=== PATIENT | female | born 1950 | race Caucasian/White ===

== ENCOUNTER 2022-05-11 13:37 | Inpatient (IN) | payer OTHER ==
[2022-05-11] MEDS ORDERED: NA CHLORIDE 0.9% 1,000 ML ONE (14:28)
--- NOTE | 2022-05-11 14:36 | RAD REPORT ---
EXAM DESCRIPTION: RAD - Chest Single View - 05/11/2022 2:17 pm CLINICAL HISTORY: syncope Chest pain. COMPARISON: CHEST PA AND LAT 2 VIEW dated 01/25/2012 FINDINGS: Portable technique limits examination quality. The lungs are mildly emphysematous but grossly clear. The heart is normal in size. No displaced fract ures. IMPRESSION: No acute intrathoracic process suspected.
[2022-05-11 14:39] LABS: Absolute Lymphocytes (CBC) 0.9 K/uL (0.7-4.9); Hematocrit 45.7 % (36.0-45.0); Lymphocytes % 9.5 % (15.3-44.8); MCV 91.2 fL (80-100); MPV 8.3 fL (7.6-11.3); RBC Red Blood Cell Count 5.01 M/uL (3.86-4.86)
[2022-05-11 14:42] LABS: Protime INR 1.09
[2022-05-11 14:52] LABS: Albumin 3.5 g/dL (3.4-5.0); Bilirubin Total 0.7 mg/dL (0.2-1.0); Potassium 4.2 mmol/L (3.5-5.1); Protein, Total 7.7 g/dL (6.4-8.2)
--- NOTE | 2022-05-11 15:39 | ER ---
Nurse's Notes [facility] Name: Jamia Hernandez Age: 71 yrs Sex: Female : 1950 Arrival Date: 05/11/2022 Time: 13:41 Bed 6 Private MD: Diagnosis: Acute embolism and thrombosis of other specified deep vein of left lower extremity;Syncope;Pulmonary embolism without acute cor pulmonale Presentation: 05/11 13:47 Chief complaint: EMS states: Toned out by spouse for syncopal episode upon standing, jl7 reports pt has been fighting a UTI and with hx of Alzheimer's. EMS reports pt systolic BP on arrival was 80, 350 mL of NS given in route and BP 116/86 just CLAM TREADER at ED. Coronavirus screen: At this time, the client does not indicate any symptoms associated with coronavirus-19. Ebola Screen: No symptoms or risks identified at this time. Initial Sepsis Screen: Does the patient meet any 2 criteria? No. Patient's initial sepsis screen is negative. Does the patient have a suspected source of infection? Yes: Dysuria/Frequency/Urgency/UTI. Risk Assessment: Do you want to hurt yourself or someone else? Patient reports no desire to harm self or others. Onset of symptoms is unknown. Care prior to arrival: Medication(s) given: Normal saline infusion, 350 mL IV initiated. 20 GA, in the right antecubital area, Glucose check: 142. 13:47 Method Of Arrival: EMS: [facility] 13:47 Acuity: LUCIO 3 jl7 Triage Assessment: 13:53 General: Appears in no apparent distress. uncomfortable, Behavior is calm, cooperative. jl7 Pain: Denies pain. Neuro: Level of Consciousness is awake, alert, obeys commands, confused, Oriented to person, Reports a syncopal episode. Cardiovascular: Patient's skin is warm and dry. Respiratory: Airway is patent Respiratory effort is even, unlabored, Respiratory pattern is regular, symmetrical. Derm: Skin is dry, Skin is normal, Skin temperature is cool. Historical: - Allergies: 13:53 No Known Allergies; jl7 - Home Meds: 13:53 donepezil 10 mg oral tab 1 tab once daily [Active]; sertraline 100 mg oral tab 1 tab jl7 once daily [Active]; memantine 10 mg oral tab 1 tab 2 times per day [Active]; - PMHx: 13:53 Alzheimer's disease; jl7 - Immunization history:: Adult Immunizations unknown. - Family history:: not pertinent. - Social history:: Smoking status: Patient denies any tobacco usage or history of. - Hospitalizations: : No recent hospitalization is reported. Screenin:30 Abuse screen: Denies threats or abuse. Denies injuries from another. Nutritional jl7 screening: No deficits noted. Tuberculosis screening: No symptoms or risk factors identified. Fall Risk Fall in past 12 months (25 points). Secondary diagnosis (15 points) Alzheimer's, IV access (20 points). Ambulatory Aid- None/Bed Rest/Nurse Assist (0 pts). Gait- Weak (10 pts.). Mental Status- Overestimates/Forgets Limitations (15 pts.). Total Gonzales Fall Scale indicates High Risk Score (45 or more points). Fall prevention measures have been instituted. Side Rails Up X 2 Placed Close to Nursing Station Frequent Obs/Assessments Occuring Family Present and informed to notify staff if the need to leave the bedside As available patient and family educated on Fall Prevention Program and Strategies. Assessment: 14:15 General: Appears in no apparent distress. uncomfortable, Behavior is calm, cooperative. jl7 Pain: Denies pain. Neuro: Level of Consciousness is awake, alert, obeys commands, confused, Oriented to person. Cardiovascular: Left leg appears purple in color, warm to touch, ERD notified. Pulses are 2+ in right dorsalis pedis artery and left dorsalis pedis artery Rhythm is regular. Respiratory: Airway is patent Respiratory effort is even, unlabored, Respiratory pattern is regular, symmetrical. GI: Parent/caregiver reports the patient having abdominal pain. : Parent/caregiver report the patient having Currently being treated for UTI. Derm: Skin is pink, warm \T\ dry. 15:15 Reassessment: Patient appears in no apparent distress at this time. No changes from jl7 previously documented assessment. Patient and/or family updated on plan of care and expected duration. Pain level reassessed. 16:15 Reassessment: Patient appears in no apparent distress at this time. No changes from jl7 previously documented assessment. Patient and/or family updated on plan of care and expected duration. Pain level reassessed. 17:15 Reassessment: Patient appears in no apparent distress at this time. No changes from jl7 previously documented assessment. Patient and/or family updated on plan of care and expected duration. Pain level reassessed. 19:43 Reassessment: Patient appears in no apparent distress at this time. Patient and/or as6 family updated on plan of care and expected duration. Pain level reassessed. Vital Signs: 13:47 BP 111 / 47; Pulse 73; Resp 15; Temp 97.9; Pulse Ox 94% ; Weight 65 kg; jl7 15:30 BP 123 / 69; Pulse 70; Resp 15; Pulse Ox 97% ; jl7 16:15 BP 126 / 69; Pulse 71; Resp 16; Pulse Ox 96% ; jl7 17:00 BP 126 / 63; Pulse 75; Resp 15; Pulse Ox 96% ; jl7 19:43 BP 123 / 60; Pulse 77; Resp 17 S; Pulse Ox 96% on R/A; as6 20:56 BP 135 / 67; Pulse 82; Resp 17 S; Pulse Ox 96% on R/A; as6 ED Course: 13:41 Patient arrived in ED. rn 13:41 Jacob Grove MD is Attending Physician. rn 13:42 Penny Richardson RN is Primary Nurse. jl7 13:53 Triage completed. jl7 14:19 Chest Single View XRAY In Process Unspecified. EDMS 14:30 Initial lab(s) drawn, by me, sent to lab. EKG done, by ED staff, reviewed by Jacob Grove MD COVID swab sent to lab. Inserted saline lock: 20 gauge in left forearm, using aseptic technique. Blood collected. 15:30 Patient has correct armband on for positive identification. Placed in gown. Bed in low jl7 position. Call light in reach. Side rails up X2. Client placed on continuous cardiac and pulse oximetry monitoring. NIBP monitoring applied. Warm blanket given. 15:38 Alejandro Johnson is Hospitalizing Provider. rn 15:49 Extremity Venous Uni Ltd US In Process Unspecified. EDMS 15:49 Lower Extremity Artery Uni Ltd US In Process Unspecified. EDMS 16:00 Urine collected: straight cath specimen, clear. Straight cath inserted, using sterile jl7 technique, 14 Fr. Specimen obtained. Returned clear yellow urine. Patient tolerated poorly. 17:28 CT Aorta for Dissection In Process Unspecified. EDMS 19:11 Primary Nurse role handed off by Penny Richardson RN [email or web address] 19:42 Benja Braxton, ZUHAIR is Primary Nurse. as6 20:40 Arm band placed on. as6 20:40 No provider procedures requiring assistance completed. Patient admitted, IV remains in as6 place. Administered Medications: 14:30 Drug: NS 0.9% 1000 ml Route: IV; Rate: 1000 ml; Site: left forearm; jl7 16:13 Follow up: Response: No adverse reaction; IV Status: Completed infusion; IV Intake: jl7 1000ml 15:34 CANCELLED (Duplicate Order): Lovenox (enoxaparin) 1 mg/kg Sub-Q once rn 17:49 Drug: Lovenox (enoxaparin) 1 mg/kg Route: Sub-Q; Site: abdomen; jl7 19:44 Follow up: Response: No adverse reaction as6 Medication: 15:30 VIS not applicable for this client. jl7 Intake: 16:13 IV: 1000ml; Total: 1000ml. jl7 Outcome: 15:38 Decision to Hospitalize by Provider. rn 20:40 Admitted to Med/surg accompanied by tech, family with patient, via stretcher, room 204, as6 with chart. 20:40 Condition: stable 20:40 Instructed on the need for admit. 20:58 Patient left the ED. as6 Signatures: Dispatcher [employer] EDJacob Soliman MD MD rn Leal, Jahala, RN RN [email or web address] Katie Molina [email or web address] Benja Braxton RN RN as6
--- NOTE | 2022-05-11 15:39 | EDPHYS ---
Physician Documentation [facility] Name: Jamia Hernandez Age: 71 yrs Sex: Female : 1950 Arrival Date: 05/11/2022 Time: 13:41 Bed 6 Private MD: ED Physician Jacob Grove HPI: 05/11 15:46 This 71 yrs old Female presents to ER via EMS with complaints of Syncope. rn 15:46 The patient has experienced syncope, collapsed. Onset: The symptoms/episode rn began/occurred just prior to arrival. Duration: This was a single episode. Associated injury: The patient did not suffer any apparent associated injury. Associated signs and symptoms: Pertinent positives: abdominal pain, weakness, Pertinent negatives: chest pain, seizure. Current symptoms: Currently, the patient is not experiencing any symptoms. The patient has not experienced similar symptoms in the past. reports tried to get her up and passed out. EMS reported low blood pressure but improved after 350cc bolus. reports being treated for UTI. Noticed some abd pain today. Also reports discoloration to LLE that is new and just noticed. . Historical: - Allergies: 13:53 No Known Allergies; jl7 - Home Meds: 13:53 donepezil 10 mg oral tab 1 tab once daily [Active]; sertraline 100 mg oral tab 1 tab jl7 once daily [Active]; memantine 10 mg oral tab 1 tab 2 times per day [Active]; - PMHx: 13:53 Alzheimer's disease; jl7 - Immunization history:: Adult Immunizations unknown. - Family history:: not pertinent. - Social history:: Smoking status: Patient denies any tobacco usage or history of. - Hospitalizations: : No recent hospitalization is reported. ROS: 15:46 Unable to obtain ROS due to baseline dementia. rn Exam: 14:34 ECG was reviewed by the Attending Physician. rn 15:46 Constitutional: This is a well developed, well nourished patient who is awake, alert, rn and in no acute distress. Head/Face: Normocephalic, atraumatic. Eyes: Periorbital areas with no swelling, redness, or edema. ENT: dry MM Cardiovascular: Regular rate and rhythm. No pulse deficits. Respiratory: No increased work of breathing, no retractions or nasal flaring. Abdomen/GI: soft, mild mid abd tenderness, no swelling Skin: Warm, dry, + discoloration with cyanosis LLE from thigh down. MS/ Extremity: Pulses equal Neuro: Awake, alert, answers questions. Not oriented to place or time. Vital Signs: 13:47 BP 111 / 47; Pulse 73; Resp 15; Temp 97.9; Pulse Ox 94% ; Weight 65 kg; jl7 15:30 BP 123 / 69; Pulse 70; Resp 15; Pulse Ox 97% ; jl7 16:15 BP 126 / 69; Pulse 71; Resp 16; Pulse Ox 96% ; jl7 17:00 BP 126 / 63; Pulse 75; Resp 15; Pulse Ox 96% ; jl7 19:43 BP 123 / 60; Pulse 77; Resp 17 S; Pulse Ox 96% on R/A; as6 20:56 BP 135 / 67; Pulse 82; Resp 17 S; Pulse Ox 96% on R/A; as6 MDM: 13:41 Patient medically screened. rn 05/11 13:42 Order name: Blood Culture Adult (2) rn 05/11 13:42 Order name: CBC with Diff; Complete Time: 14:49 rn 05/11 13:42 Order name: CMP; Complete Time: 15:33 rn 05/11 13:42 Order name: Lactate; Complete Time: 15:33 rn 05/11 13:42 Order name: Protime (+inr); Complete Time: 14:49 rn 05/11 13:42 Order name: Ptt, Activated; Complete Time: 14:49 rn 05/11 13:42 Order name: Urine Culture rn 05/11 13:42 Order name: Urine Microscopic Only; Complete Time: 16:43 rn 05/11 13:42 Order name: Chest Single View XRAY; Complete Time: 14:49 rn 05/11 13:42 Order name: SARS-COV-2 RT PCR (Document "Date of Onset" if Symptomatic); Complete Time: rn 15:33 05/11 14:18 Order name: Extremity Venous Uni Ltd US; Complete Time: 16:43 rn 05/11 14:18 Order name: Lower Extremity Artery Uni Ltd US; Complete Time: 16:43 rn 05/11 14:18 Order name: CT Aorta for Dissection; Complete Time: 17:37 rn 05/11 16:08 Order name: Urine Dipstick-Ancillary; Complete Time: 16:43 EDMS 05/11 13:42 Order name: Accucheck; Complete Time: 16:16 rn 05/11 13:42 Order name: Cardiac monitoring; Complete Time: 15:03 rn 05/11 13:42 Order name: Cath; Complete Time: 16:16 rn 05/11 13:42 Order name: EKG - Nurse/Tech; Complete Time: 15:13 rn 05/11 13:42 Order name: IV Saline Lock - Large Bore; Complete Time: 15:02 rn 05/11 13:42 Order name: Labs collected and sent; Complete Time: 15:02 rn 05/11 13:42 Order name: O2 Per Protocol; Complete Time: 15:02 rn 05/11 13:42 Order name: O2 Sat Monitoring; Complete Time: 15:02 rn 05/11 13:42 Order name: Urine Dipstick-Ancillary (obtain specimen); Complete Time: 17:49 rn EC:34 Rate is 71 beats/min. Rhythm is regular. QRS [place] is Normal. VA interval is normal. QRS rn interval is normal. QT interval is normal. No Q waves. T waves are Normal. No ST changes noted. Clinical impression: NSR w/ Non-specific ST/T Changes. Interpreted by me. Reviewed by me. Administered Medications: 14:30 Drug: NS 0.9% 1000 ml Route: IV; Rate: 1000 ml; Site: left forearm; jl7 16:13 Follow up: Response: No adverse reaction; IV Status: Completed infusion; IV Intake: jl7 1000ml 15:34 CANCELLED (Duplicate Order): Lovenox (enoxaparin) 1 mg/kg Sub-Q once rn 17:49 Drug: Lovenox (enoxaparin) 1 mg/kg Route: Sub-Q; Site: abdomen; jl7 19:44 Follow up: Response: No adverse reaction as6 Disposition Summary: 05/11/22 15:38 Hospitalization Ordered Hospitalization Status: Inpatient Admission rn Provider: Alejandro Johnson rn Location: Telemetry/[facility] (Inpatient) rn Condition: Stable rn Problem: new rn Symptoms: have improved rn Bed/Room Type: Standard rn Room Assignment: 204(05/11/22 20:34) cg Diagnosis - Acute embolism and thrombosis of other specified deep vein of left lower extremity rn - Syncope rn - Pulmonary embolism without acute cor pulmonale rn Forms: - Medication Reconciliation Form rn - SBAR form rn Signatures: Dispatcher [employer] Jacob Morrissey MD MD rn Garcia, Cindy, RN RN cg Leal, Jahala, RN RN jl7 Benja Braxton RN as6 Corrections: (The following items were deleted from the chart) 15:34 15:33 Lovenox (enoxaparin) 1 mg/kg Sub-Q once ordered. victoriano rn 20:34 15:38 victoriano gordon
--- NOTE | 2022-05-11 15:58 | RAD REPORT ---
EXAM DESCRIPTION: US - Extremity Venous Uni Ltd - 05/11/2022 3:47 pm CLINICAL HISTORY: cyanosis Leg swelling and edema. COMPARISON: No comparisons FINDINGS: Left lower extremity venous system was interrogated with Doppler technique. Echogenic thro mbus is present throughout the left lower extremity venous system. Very little venous flow is visible . IMPRESSION: Extensive left lower extremity DVT is present.
--- NOTE | 2022-05-11 16:02 | RAD REPORT ---
EXAM DESCRIPTION: US - Lower Extremity Artery Uni Ltd - 05/11/2022 3:48 pm CLINICAL HISTORY: SWELLING COMPARISON: No comparisons FINDINGS: Predominant biphasic waveforms are seen throughout the left lower extremity arterial syste m. Flow is somewhat dampened present. No high-grade stenosis or occlusion seen. IMPRESSION: No high-grade stenosis or occlusion.
[2022-05-11 16:08] LABS: Urine Blood Negative (Negative); Urine Glucose Negative (Negative); Urine Protein Negative (Negative); Urine Specific Gravity >=1.030 (1.005-1.030); Urine pH 5.5 (5.0-7.0)
[2022-05-11 16:12] LABS: Urine Bacteria <20 /HPF (<20); Urine RBC <5 /HPF (NONE SEEN)
[2022-05-11 16:13] LABS: Urine Mucus 1+ /HPF (NONE SEEN)
--- NOTE | 2022-05-11 17:35 | RAD REPORT ---
EXAM DESCRIPTION: CT - Angio Aorta For Dissection - 05/11/2022 5:26 pm CLINICAL HISTORY: Chest pain radiating to the back. abdominal pain, cyanosis of LLE COMPARISON: No comparisons TECHNIQUE: CT angiography of the aorta was performed with MIPs. All CT scans are performed using dose optimization technique as appropriate and may include automated exposure control or mA/KV adjustment according to patient size. FINDINGS: A left aortic arch is present with bovine branching pattern of the great vessels.No acute aortic finding is seen such as aneurysm, penetrating ulcer or dissection. The celiac axis, SMA, ROBERTO and renal arteries are patent. There is moderate pulmonary embolism seen involving the right main pulmonary artery and right lower l obe branches. Mild interstitial pulmonary edema is present. Trace right pleural effusion. Mild fatty liver is seen with benign cyst in the right lobe of the liver.The spleen, pancreas, adrena l glands are normal. Benign appearing bilateral renal cysts. No bowel obstruction, free fluid or abscess.Sigmoid diverticulosis coli without diverticulitis.No pat hologic enlarged lymphadenopathy identified. No fractures are seen. IMPRESSION: No acute aortic finding is demonstrated. Positive for right-sided pulmonary embolism as described.
[2022-05-11] MEDS ORDERED: ENOXAPARIN 80 MG/0.8 ML SQ ONE (17:53)
--- NOTE | 2022-05-11 18:30 | P.HP ---
Certification for Inpatient Patient admitted to: Inpatient With expected LOS: >2 Midnights Practitioner: I am a practitioner with admitting privileges, knowledge of patient current condition, hospital course, and medical plan of care. Services: Services provided to patient in accordance with Admission requirements found in Title 42 Section 412.3 of the Code of Federal Regulations Patient History Date of Service: 05/11/22 Reason for admission: Syncope History of Present Illness: 71-year-old woman with a history of Alzheimer dementia and recurrent UTI, currently bedridden was brought to the emergency department due to syncopal episode. reported patient passed out while in a sitting position this morning. She had taken multiple antibiotics for urinary tract infection. was concerned of persistent UTI despite antibiotics. Her left lower extremity was noted to be swollen with purplish skin. Venous Doppler of the lower extremity demonstrated large proximal left lower extremity DVT. This was followed by CT dissection-chest abdomen and pelvis with demonstrated right main pulmonary artery and branch pulmonary arteries emboli. reports patient blood pressure was low prior to presentation with systolic in the 60s. Syncope likely related to pulm embolism. UA is negative for UTI. Patient given a dose of Lovenox and admitted for further management. - Past Medical/Surgical History -: Recurrent UTI -: Alzheimer dementia - Family History Mother -: Cancer - Social History Smoking Status: Never smoker Alcohol use: No Place of Residence: Home Review of Systems is unable to be obtained (Due to advanced dementia) Other: No reported diarrhea or vomiting, no reported cough or fever. Physical Examination - Physical Exam General: In no apparent distress, Cooperative, Other (Awake) HEENT: Atraumatic, PERRLA, Mucous membr. moist/pink, EOMI, Sclerae nonicteric Neck: Supple, JVD not distended Respiratory: Clear to auscultation bilaterally, Normal air movement Cardiovascular: No edema, Regular rate/rhythm, Normal S1 S2, No murmurs Capillary refill: <2 Seconds Gastrointestinal: Normal bowel sounds, Soft and benign, Non-distended, No tenderness Musculoskeletal: No tenderness, Swelling (Left lower extremity swelling up to thigh level.) Integumentary: Cyanosis (Left leg, left lower extremity skin mottling.) Neurological: Other (No focal motor deficit), Dementia Lymphatics: No axilla or inguinal lymphadenopathy - Studies Laboratory Data (last 24 hrs) 05/11/22 14:25: PT 12.0, INR 1.09, APTT 29.8 05/11/22 14:25: Sodium 140, Potassium 4.2, BUN 18, Creatinine 1.13, Glucose 123 H, Total Bilirubin 0.7, AST 13 L, ALT 17, Alkaline Phosphatase 129 H 05/11/22 14:25: WBC 9.1, Hgb 15.3 H, Hct 45.7 H, Plt Count 182 Assessment and Plan - Problems (Diagnosis) (1) Acute pulmonary embolism Current Visit: Yes Status: Acute (2) Acute deep vein thrombosis of left lower extremity Current Visit: Yes Status: Acute (3) Syncope and collapse Current Visit: Yes Status: Acute (4) Alzheimer's dementia Current Visit: Yes Status: Acute - Plan Syncope likely cardiogenic and secondary to pulm embolus. Admit to the medical floor. Start patient on Eliquis regimen for acute DVT. Obtain echocardiogram to assess for LV function and RV strain. PT for bed mobility Continue home medications including antibiotics for prior UTI. Continue asthma medications. - Advance Directives Does patient have a Living Will: No Does patient have a Durable POA for Healthcare: No
[2022-05-11 21:15] VITALS: O2SAT 96
[2022-05-11] MEDS ORDERED: ACETAMINOPHEN 500 MG TAB PO PRN (21:32)
[2022-05-11] MEDS ORDERED: ONDANSETRON 4 MG/2 ML VIAL IV PRN (21:32)
[2022-05-11] MEDS: D5 0.9 NS 1,000 ML IV SCH (21:47)
[2022-05-11] MEDS: SERTRALINE HCL 100 MG TAB PO SCH (22:05)
[2022-05-11 22:22] VITALS: BMI 28.9
[2022-05-11] MEDS: DONEPEZIL HCL 5 MG TAB PO SCH (22:26)
[2022-05-11] MEDS: MEMANTINE HCL 10 MG TABLET PO SCH (22:26)
--- NOTE | 2022-05-12 07:50 | EKG ---
Test Date: 2022-05-11 Test Time: 14:19:52 Lead Pastor: HB MEASUREMENT RESULTS: Intervals: Rate: 71 AR: 150 QRSD: 80 QT: 390 QTc: 423 [place]: P: 69 AR: 150 QRS: -16 T: 30 INTERPRETIVE STATEMENTS: Normal sinus rhythm Cannot rule out Anterior infarct, age undetermined Abnormal ECG Compared to ECG 01/25/2012 08:28:01 Myocardial infarct finding now present Electronically Signed On 05-12-22 07:48:24 CDT by Ryland Jimenez
[2022-05-12] MEDS: APIXABAN 5 MG TABLET PO SCH ×2 (09:12→20:50)
[2022-05-12] MEDS: DONEPEZIL HCL 5 MG TAB PO SCH ×2 (09:12→20:50)
[2022-05-12] MEDS: MEMANTINE HCL 10 MG TABLET PO SCH ×2 (09:12→20:50)
[2022-05-12 10:49] LABS: Absolute Lymphocytes (CBC) 1.3 K/uL (0.7-4.9); Hematocrit 40.4 % (36.0-45.0); Lymphocytes % 16.7 % (15.3-44.8); MCV 91.5 fL (80-100); MPV 8.5 fL (7.6-11.3); RBC Red Blood Cell Count 4.42 M/uL (3.86-4.86)
[2022-05-12 11:01] LABS: Magnesium 2.1 mg/dL (1.8-2.4); Phosphorus 2.7 mg/dL (2.5-4.9); Potassium 3.8 mmol/L (3.5-5.1)
--- NOTE | 2022-05-12 11:49 | ECHO ---
HEIGHT: 5 ft 2 in WEIGHT: 158 lb 0 oz DATE OF STUDY: 05/12/[address]: Alejandro Johnson MD 2-DIMENSIONAL: YES M.MODE: YES DOPPLER: YES COLOR FLOW: YES TDS: NO PORTABLE: YES DEFINITY: NO BUBBLE STUDY: NO DIAGNOSIS: SYNCOPE CARDIAC HISTORY: CATHERIZATION: SURGERY: PROSTHETIC VALVE: PACEMAKER: MEASUREMENTS (cm) DIASTOLIC (NORMALS) SYSTOLIC (NORMALS) IVSd 0.9 (0.6-1.2) LA Diam 3.4 (1.9-4.0) LVEF 72% LVIDd 3.5 (3.5-5.7) LVIDs 2.1 (2.0-3.5) %FS 40% LVPWd 0.8 (0.6-1.2) Ao Diam 3.0 (2.0-3.7) 2 DIMENSIONAL ASSESSMENT: RIGHT ATRIUM: NORMAL LEFT ATRIUM: NORMAL RIGHT VENTRICLE: NORMAL LEFT VENTRICLE: NORMAL TRICUSPID VALVE: NORMAL MITRAL VALVE: NORMAL PULMONIC VALVE: NORMAL AORTIC VALVE: NORMAL PERICARDIAL EFFUSION: NONE AORTIC ROOT: NORMAL LEFT VENTRICULAR WALL MOTION: NORMAL. DOPPLER/COLOR FLOW: NORMAL. COMMENTS: NORMAL 2D ECHO WITH DOPPLER. NO WALL MOTION ABNORMALITY. NO EFFUSION. TECHNOLOGIST: KP MILLER
[2022-05-12 12:47] LABS: Protime INR 1.01
--- NOTE | 2022-05-12 14:39 | RAD REPORT ---
EXAM DESCRIPTION: CT - Pelvis Angio - 05/12/2022 2:05 pm CLINICAL HISTORY: Proximal DVT. COMPARISON: Angio Aorta For Dissection dated 05/11/2022; Lower Extremity Artery Uni Ltd dated 022; Extremity Venous Uni Ltd dated 05/11/2022 TECHNIQUE: Axial 5 millimeter thick images of the pelvis were obtained utilizing arterial and venous phase sequencing. Nonionic IV contrast was utilized. Sagittal and coronal reconstruction images were generated and reviewed. All CT scans are performed using dose optimization technique as appropriate and may include automate d exposure control or mA/KV adjustment according to patient size. FINDINGS: The left common femoral, external iliac and common iliac veins are dilated relative to the right. There is trace amount of stranding or edema in the adjacent fat. No contrast is identifiable within the lumen. Findings would support left iliofemoral deep venous thrombosis. Heterogeneous contr ast in the nondilated right iliofemoral vasculature noted. This is probably a mixture of opacified an d non-opacified blood. No history of right leg DVT noted. Only a very minimal portion of the inferior most IVC is seen. The vein is mostly collapsed. IVC thrombus is not suspected. No acute arterial finding. No acute bowel abnormality seen. There is diverticulosis without diverticu litis. Large stool volume distends the rectum to 5.5 cm. Urinary bladder is mostly contracted. Uterin e fibroid is present. There is contrast in the vaginal vault. This is suspected to be due to urine le akage rather than fistula. IMPRESSION: As detailed above, collective findings support left iliofemoral deep venous thrombosis. Extension into the IVC is not identified.
[2022-05-12] MEDS: D5 0.9 NS 1,000 ML IV SCH (17:32)
--- NOTE | 2022-05-12 19:18 | P.PN ---
Subjective Date of Service: 05/12/22 Chief Complaint: Syncope Patient denies any complaint. feels her left leg swelling is getting better. The purplish discoloration has improved. Patient is not eating much. No complaint of pain. She has been tolerating room air. Physical Examination - Vital Signs Temperature: 98.6 F Blood Pressure: 111/55 Pulse: 75 Respirations: 18 Pulse Ox (%): 100 - Physical Exam General: In no apparent distress, Confused, Other (Dementia) HEENT: Mucous membr. moist/pink, Sclerae nonicteric Neck: Supple, JVD not distended Respiratory: Clear to auscultation bilaterally, Normal air movement Cardiovascular: Regular rate/rhythm, Normal S1 S2, No murmurs, Edema (Left leg) Gastrointestinal: Normal bowel sounds, Soft and benign, Non-distended, No tenderness Musculoskeletal: No swelling, No tenderness Integumentary: No rashes, Other (Mottling-left lower extremity) Neurological: Other (Dementia, no focal motor deficit) Assessment And Plan - Current Problems (Diagnosis) (1) Acute pulmonary embolism Current Visit: Yes Status: Acute (2) Acute deep vein thrombosis of left lower extremity Current Visit: Yes Status: Acute (3) Syncope and collapse Current Visit: Yes Status: Acute (4) Alzheimer's dementia Current Visit: Yes Status: Acute - Plan Syncope likely cardiogenic and secondary to pulm embolus. Echocardiogram unremarkable, normal RV strain. CTA pelvis demonstrated iliac vein involvement. Left lower extremity swelling has not gotten worse, dorsalis pedis pulses palpable. Continue Eliquis PT for bed mobility Continue home medications including antibiotics for prior UTI. Continue asthma medications. Possible discharge in a.m.
[2022-05-12] MEDS: SERTRALINE HCL 100 MG TAB PO SCH (20:51)
[2022-05-13 08:26] VITALS: BP 119/58; TEMP 98.1
--- NOTE | 2022-05-13 08:38 | P.DS ---
Admission Date: 05/11/22 Discharge Date: 05/13/22 Disposition: DC HOME/HOME HEALTH CARE Discharge Condition: FAIR Reason for Admission: Syncope - Problems (1) Acute pulmonary embolism Current Visit: Yes Status: Acute (2) Acute deep vein thrombosis of left lower extremity Current Visit: Yes Status: Acute (3) Syncope and collapse Current Visit: Yes Status: Acute (4) Alzheimer's dementia Current Visit: Yes Status: Acute Brief History of Present Illness: 71-year-old woman with a history of Alzheimer dementia and recurrent UTI, currently bedridden was brought to the emergency department due to syncopal episode. reported patient passed out while in a sitting position this morning. She had taken multiple antibiotics for urinary tract infection. was concerned of persistent UTI despite antibiotics. Her left lower extremity was noted to be swollen with purplish skin. Venous Doppler of the lower extremity demonstrated large proximal left lower extremity DVT. This was followed by CT dissection-chest abdomen and pelvis with demonstrated right main pulmonary artery and branch pulmonary arteries emboli. reports patient blood pressure was low prior to presentation with systolic in the 60s. Syncope likely related to pulm embolism. UA is negative for UTI. Patient given a dose of Lovenox and admitted for further management. Hospital Course: Patient admitted to the medical floor and treated with Eliquis anticoagulation. Echocardiogram done was unremarkable with no RV strain, normal EF. CTA pelvis with venous phase was done which suggested involvement left iliac vessels. Patient has lower extremity swelling improved on anticoagulation. Curbside discussion with vascular surgery at [facility] was done to discuss any other options of treatment for extensive DVT. Patient considered not a candidate for any other options like mechanical thrombectomy or thrombolysis. Her left lower extremity swelling is improving. She is discharged with Eliquis DVT dosing. Her UA suggested the presence of UTI. Patient was treated with antibiotics. Urine culture yielded no growth. Patient is bedridden at baseline, she has advanced dementia, need feeding with assistance, she is able to sit. Family informed to increase her activity as tolerated and at least change her position(between sitting and standing) within 8 hours. Vital Signs/Physical Exam: Temp Pulse Resp BP Pulse Ox 98.1 F 90 18 119/58 L 96 05/13/22 08:00 05/13/22 08:00 05/13/22 08:00 05/13/22 08:00 05/13/22 08:00 General: In no apparent distress, Other (Awake) HEENT: Mucous membr. moist/pink Neck: JVD not distended Respiratory: Clear to auscultation bilaterally, Normal air movement Cardiovascular: Regular rate/rhythm, Normal S1 S2, Other (Palpable bilateral dorsalis pedis pulses), Edema (Left lower extremity) Gastrointestinal: Soft and benign, Non-distended Musculoskeletal: Swelling (Left lower extremity) Neurological: Normal strength at 5/5 x4 extr, Cranial nerves 3-12 intact, Dementia Laboratory Data at Discharge: WBC Cancelled 05/13/22 05:00 Hgb Cancelled 05/13/22 05:00 Hct Cancelled 05/13/22 05:00 Plt Count Cancelled 05/13/22 05:00 PT 12.0 SECONDS (9.2-12.8) 05/12/22 10:20 INR 1.01 05/12/22 10:20 APTT 29.8 SECONDS (24.3-36.9) 05/11/22 14:25 Sodium Cancelled 05/13/22 05:00 Potassium Cancelled 05/13/22 05:00 BUN Cancelled 05/13/22 05:00 Creatinine Cancelled 05/13/22 05:00 Glucose Cancelled 05/13/22 05:00 Phosphorus Cancelled 05/13/22 05:00 Magnesium Cancelled 05/13/22 05:00 Total Bilirubin 0.7 mg/dL (0.2-1.0) 05/11/22 14:25 AST 13 U/L (15-37) L 05/11/22 14:25 ALT 17 U/L (12-78) 05/11/22 14:25 Alkaline Phosphatase 129 U/L (45-117) H 05/11/22 14:25 Home Medications: Donepezil HCl [Aricept] 10 mg PO BID 05/11/22 Memantine HCl [Namenda] 10 mg PO BID 05/11/22 Sertraline [Zoloft*] 100 mg PO BEDTIME 05/11/22 Apixaban [Eliquis] 5 mg PO BID #74 tab.ds.pk 05/13/22 New Medications: Apixaban [Eliquis] 5 mg PO BID #74 tab.ds.pk Physician Discharge Instructions: Increase activity as tolerated. Diet: AHA Activity: Fall precautions Followup: NONE,NONE [Primary Care Provider] - 1 Week Time spent managing pt's care (in minutes): 36
[2022-05-13] MEDS: DONEPEZIL HCL 5 MG TAB PO SCH (08:52)
[2022-05-13] MEDS: APIXABAN 5 MG TABLET PO SCH (08:52)
[2022-05-13] MEDS: MEMANTINE HCL 10 MG TABLET PO SCH (08:52)
== END 2022-05-13 10:00 | disposition home health service (06) | DRG 299 ==
LOC: ER 13:37 → ERHOLD 18:18 → 2ND 20:37
PROVIDERS: ADMIT Internal Medicine; ATTEND Internal Medicine
DX: I82.402 Acute embolism and thrombosis of unspecified deep veins of left lower extremity (principal); I26.99 Other pulmonary embolism without acute cor pulmonale; N39.0 Urinary tract infection, site not specified; G30.9 Alzheimer's disease, unspecified; F02.80 Dementia in other diseases classified elsewhere, unspecified severity, without behavioral disturbance, psychotic disturbance, mood disturbance, and anxiety; Z74.01 Bed confinement status; Z20.822 Contact with and (suspected) exposure to COVID-19
CPT/HCPCS: 36415; 51702; 71045; 71275; 72191; 74175; 80048; 80053; 81003; 81015; 83605; 83735; 84100; 85025; 85610; 85730; 87040; 87086; 87088; 93005; 93306; 93926; 93971; 94760; 96360; 96361; 96372; 97161; 97530; 99285; J7030; J7042; Q9967; U0003

== ENCOUNTER 2022-07-02 11:57 | Emergency (ER) | payer OTHER ==
[2022-07-02] MEDS ORDERED: HYDROCODONE/APAP 5/325 MG TAB ONE (12:54)
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
--- NOTE | 2022-07-02 13:52 | RAD REPORT ---
EXAM DESCRIPTION: RAD - Hip Right 2 View - 07/02/2022 1:45 pm CLINICAL HISTORY: Pain COMPARISON: No comparisons FINDINGS: Moderately impacted subcapital fracture of the proximal right femur is seen. The bones are diffusely osteopenic. No dislocation.
[2022-07-02] MEDS ORDERED: NA CHLORIDE 0.9% 1,000 ML ONE (14:33)
--- NOTE | 2022-07-02 14:33 | ER ---
Nurse's Notes [facility] Name: Jamia Hernandez Age: 72 yrs Sex: Female : 1950 Arrival Date: 07/02/2022 Time: 11:58 Bed 16 Private MD: Diagnosis: Intertrochanteric fracture of femur Presentation: 07/02 12:34 Chief complaint: Spouse and/or significant other states: she was trying to walk with bm7 her walker and she tripped and fell on her right hip and since then she has not been acting right. Care prior to arrival: None. Mechanism of Injury: Fall from standing position. Trauma event details: Injury occurred in the [facility]. 12:34 Acuity: LUCIO 3 bm7 12:34 Method Of Arrival: Wheelchair bm7 15:27 Coronavirus screen: Vaccine status: Patient reports receiving the 2nd dose of the covid jg9 vaccine. Ebola Screen: Patient negative for fever greater than or equal to 101.5 degrees Fahrenheit, and additional compatible Ebola Virus Disease symptoms Patient denies exposure to infectious person. Patient denies travel to an Ebola-affected area in the 21 days before illness onset. Initial Sepsis Screen: Does the patient meet any 2 criteria? No. Patient's initial sepsis screen is negative. Does the patient have a suspected source of infection? No. Patient's initial sepsis screen is negative. Risk Assessment: Do you want to hurt yourself or someone else? Patient reports no desire to harm self or others. Onset of symptoms is unknown. Trauma Activation: Physician: ED Physician; Name: MARK; Notified At: ; Arrived At: Physician: General Surgeon; Name: ; Notified At: ; Arrived At: Physician: Radiology; Name: ; Notified At: ; Arrived At: Physician: Respiratory; Name: ; Notified At: ; Arrived At: Physician: Lab; Name: ; Notified At: ; Arrived At: Historical: - Allergies: 12:38 No Known Allergies; bm7 - Home Meds: 12:38 donepezil 10 mg Oral tab 1 tab once daily [Active]; memantine 10 mg Oral tab 1 tab 2 bm7 times per day [Active]; sertraline 100 mg Oral tab 1 tab once daily [Active]; - PMHx: 12:38 Alzheimer's disease; bm7 - Immunization history: Last tetanus immunization: unknown. - Social history:: Smoking status: Patient denies any tobacco usage or history of. Screenin:33 Abuse screen: Denies threats or abuse. Tuberculosis screening: No symptoms or risk bm7 factors identified. 15:27 Nutritional screening: No deficits noted. Fall Risk Fall in past 12 months (25 points). jg9 Primary Survey: 12:37 NO uncontrolled hemorrhage observed. A: The client is awake and alert. The airway is bm7 patent. Breathing/Chest: Spontaneous respiratory effort, equal unlabored respirations, breath sounds clear bilaterally, regular pattern, symmetrical chest rise and fall. Circulation: No external hemorrhage present. Regular and strong central pulse, skin warm/dry/normal color. Disability Pupils are equal, round, reactive to light and accommodation. Client is alert. Exposure/Environment: A warming method has been applied: A warm blanket has been provided to the patient. 13:00 Reassessment Alertness and Airway: Awake and alert. The airway is patent. Breathing: jg9 Spontaneous respiratory effort, equal unlabored respirations, breath sounds clear bilaterally, regular pattern with symmetrical chest rise and fall. Circulation: No external hemorrhage noted. Regular and strong central pulse, skin warm/dry/normal color. Disability: Alert. Secondary Survey: 15:26 HEENT: No deficits noted. Gastrointestinal: No deficits noted. : No deficits noted. jg9 Musculoskeletal: r leg short and rotated Reports pain in pelvis and right iliac crest. Assessment: 12:34 General: Appears in no apparent distress. comfortable, Behavior is calm, cooperative. bm7 Pain: Complains of pain in right iliac crest. Neuro: Level of Consciousness is awake, alert, confused, Oriented to person, Weakness in right leg(s) Gait is unsteady. EENT: No deficits noted. No signs and/or symptoms were reported regarding the EENT system. Cardiovascular: No deficits noted. Respiratory: No deficits noted. GI: No deficits noted. No signs and/or symptoms were reported involving the gastrointestinal system. : No deficits noted. No signs and/or symptoms were reported regarding the genitourinary system. Derm: No deficits noted. No signs and/or symptoms reported regarding the dermatologic system. Musculoskeletal: Parent/caregiver report the patient having pain in right iliac crest. 14:49 Reassessment: at bedside wants patient knocked out before we attempt to insert jg9 a Osei, he reports that the patient becomes extremely aggressive placing herself and others at risk for injury. 19:08 Reassessment: nurse to nurse report called to Monika Bowens at [facility] at 1620pm. jg9 20:11 Reassessment: Patient appears in no apparent distress at this time. Patient and/or jb4 family updated on plan of care and expected duration. Pain level reassessed. Pt is awake, confused, transferred to EMS stretcher. LAC IV no longer patent, IV pulled, Intact, dressing applied. EMS started 22g in the RAC. Vital Signs: 12:33 BP 120 / 67; Pulse 64; Resp 16; Temp 98.2(TE); Pulse Ox 100% on R/A; Weight 68.04 kg bm7 (R); Height 5 ft. 1 in. (154.94 cm); 14:45 BP 111 / 6; Pulse 71; Resp 17 S; Pulse Ox 100% on R/A; jg9 15:15 BP 111 / 60; Pulse 71; Resp 17 S; Pulse Ox 100% on R/A; jg9 15:30 BP 111 / 70; Pulse 76; Resp 17 S; Pulse Ox 99% on R/A; jg9 19:45 BP 113 / 54; Pulse 77; Resp 16; Pulse Ox 98% on R/A; jb4 12:33 Body Mass Index 28.34 (68.04 kg, 154.94 cm) bm7 Geremias Coma Score: 12:33 Eye Response: spontaneous(4). Verbal Response: confused(4). Motor Response: localizes bm7 pain(5). Total: 13. 12:44 Eye Response: spontaneous(4). Verbal Response: oriented(5). Motor Response: obeys snw commands(6). Total: 15. Trauma Score (Adult): 12:33 Eye Response: spontaneous(1); Verbal Response: confused(1); Motor Response: localizes bm7 pain(1); Systolic BP: > 89 mm Hg(4); Respiratory Rate: 10 to 29 per min(4); Geremias Score: 13; Trauma Score: 11 12:44 Eye Response: spontaneous(1); Verbal Response: oriented(1); Motor Response: obeys snw commands(2); Systolic BP: > 89 mm Hg(4); Respiratory Rate: 10 to 29 per min(4); [place] Score: 15; Trauma Score: 12 ED Course: 11:58 Patient arrived in ED. as 12:23 Jacinta Montanez FNP-C [facility]. snw 12:23 Jacob Grove MD is Attending Physician. snw 12:33 Patient has correct armband on for positive identification. Adult w/ patient. bm7 12:35 Triage completed. bm7 12:37 Patient maintains SpO2 saturation greater than 95% on room air. bm7 12:44 Anastacia Jensen, ZUHAIR is Primary Nurse. jg9 13:00 Arm band placed on left wrist. jg9 13:04 CT Head C Spine In Process Unspecified. EDMS 13:05 CT Pelvis wo Cont In Process Unspecified. EDMS 13:47 Hip Right 2 View XRAY In Process Unspecified. EDMS 14:06 initiated a transfer with Joao Carlin from the [facility] Transfer [facility]. eb 14:[address] Navarrete the hospitalist commissions analyst for [facility] with Jacinta Mcwilliams for patient transfer consultation. 14:38 Chest Single View XRAY In Process Unspecified. EDMS 14:56 EKG done, by ED staff, reviewed by Jacinta CUTLER. em1 15:29 Thermoregulation: warm blanket given to patient. jg9 16:05 administrative approval given by Joao Carlin/ patient has been accepted to [facility] A 514/ Dr. Shy Navarrete has accepted the patient in transfer/ report to be called to [phone]. 20:00 No provider procedures requiring assistance completed. IV discontinued, intact, jb4 bleeding controlled, No redness/swelling at site. Pressure dressing applied. 20:13 Inserted saline lock: 22 gauge in right antecubital area, using aseptic technique. jb4 ,using aseptic technique. started by EMS. Administered Medications: 12:48 Drug: HYDROcodone-acetaminophen 5 mg-325 mg 1 tabs {Note: RASS-0.} Route: PO; jg9 13:30 Follow up: Response: No adverse reaction jg9 14:39 Drug: NS 0.9% 1000 ml Route: IV; Rate: 75 ml/hr; Site: left antecubital; jg9 20:08 Drug: morphine 2 mg Route: IVP; Infused Over: 4 mins; Site: right antecubital; jb4 20:08 Follow up: Response: Medication administered at discharge. jb4 Medication: 20:14 VIS not applicable for this client. jb4 Outcome: 14:32 ER care complete, transfer ordered by MD. salazar 20:13 Transferred by ground EMS to [facility], Transfer form completed. jb4 X-rays sent w/ patient. 20:13 Condition: stable 20:13 Discharge instructions given to family, Instructed on the need for transfer, Demonstrated understanding of instructions. 20:14 Patient's length of stay in the Emergency Department was greater than 2 hours. pending jb4 transferPatient's length of stay extended due to 20:14 Patient left the ED. jb4 Signatures: Dispatcher [employer] EDMS Jacinta Montanez, HOT HEADER OPERATOR-C HOT HEADER OPERATOR-Csnw Kaur Cabrera Eric em1 Dennis Srivastava RN RN jb4 Margaux Patiño Brittany, RN RN bm7 Anastacia Jensen RN RN jg9
--- NOTE | 2022-07-02 14:33 | EDPHYS ---
Physician Documentation [facility] Name: Jamia Hernandez Age: 72 yrs Sex: Female : 1950 Arrival Date: 07/02/2022 Time: 11:58 Bed 16 Private MD: ED Physician Jacob Grove HPI: 07/02 12:47 This 72 yrs old Female presents to ER via Wheelchair with complaints of Fall Injury, snw Hip Pain. 12:47 Details of fall: The patient fell from seated position, out of a chair, and struck a snw linoleum surface. Onset: The symptoms/episode began/occurred suddenly, today. Associated injuries: The patient sustained right iliac crest. Severity of symptoms: At their worst the symptoms were moderate. It is unknown whether or not the patient has had similar symptoms in the past. Sees Gilma Miranda and Neuro. Pt has been doing well, walking with walker, decreased some dementia meds and "came to life". Historical: - Allergies: 12:38 No Known Allergies; bm7 - Home Meds: 12:38 donepezil 10 mg Oral tab 1 tab once daily [Active]; memantine 10 mg Oral tab 1 tab 2 bm7 times per day [Active]; sertraline 100 mg Oral tab 1 tab once daily [Active]; - PMHx: 12:38 Alzheimer's disease; bm7 - Immunization history: Last tetanus immunization: unknown. - Social history:: Smoking status: Patient denies any tobacco usage or history of. ROS: 12:46 Constitutional: Negative for fever, chills, and weight loss, Eyes: Negative for injury, snw pain, redness, and discharge, ENT: Negative for injury, pain, and discharge, Neck: Negative for injury, pain, and swelling, Cardiovascular: Negative for chest pain, palpitations, and edema, Respiratory: Negative for shortness of breath, cough, wheezing, and pleuritic chest pain, Abdomen/GI: Negative for abdominal pain, nausea, vomiting, diarrhea, and constipation, Back: Negative for injury and pain, : Negative for injury, bleeding, discharge, and swelling, Skin: Negative for injury, rash, and discoloration, Neuro: Negative for headache, weakness, numbness, tingling, and seizure, Psych: Negative for depression, anxiety, suicide ideation, homicidal ideation, and hallucinations. 12:46 MS/extremity: Positive for injury or acute deformity, pain, of the right iliac crest, fell from wheelchair to floor. Exam: 12:44 Head/Face: Normocephalic, atraumatic. Eyes: Pupils equal round and reactive to light, snw extra-ocular motions intact. Lids and lashes normal. Conjunctiva and sclera are non-icteric and not injected. Cornea within normal limits. Periorbital areas with no swelling, redness, or edema. ENT: Nares patent. No nasal discharge, no septal abnormalities noted. Tympanic membranes are normal and external auditory canals are clear. Oropharynx with no redness, swelling, or masses, exudates, or evidence of obstruction, uvula midline. Mucous membranes moist. Neck: Trachea midline, no thyromegaly or masses palpated, and no cervical lymphadenopathy. Supple, full range of motion without nuchal rigidity, or vertebral point tenderness. No Meningismus. Chest/axilla: Normal chest wall appearance and motion. Nontender with no deformity. No lesions are appreciated. Cardiovascular: Regular rate and rhythm with a normal S1 and S2. No gallops, murmurs, or rubs. Normal PMI, no JVD. No pulse deficits. Respiratory: Lungs have equal breath sounds bilaterally, clear to auscultation and percussion. No rales, rhonchi or wheezes noted. No increased work of breathing, no retractions or nasal flaring. Abdomen/GI: Soft, non-tender, with normal bowel sounds. No distension or tympany. No guarding or rebound. No evidence of tenderness throughout. Back: No spinal tenderness. No costovertebral tenderness. Full range of motion. Skin: Warm, dry with normal turgor. Normal color with no rashes, no lesions, and no evidence of cellulitis. MS/ Extremity: Pulses equal, no cyanosis. Neurovascular intact. Full, normal range of motion. 12:44 Constitutional: The patient appears alert, well developed, frail. 12:44 Neuro: Orientation: pt with Alzheimer dementia - answers questions, assisted by Daughter and Spouse. 12:44 Special observations: the patient smiles. Vital Signs: 12:33 BP 120 / 67; Pulse 64; Resp 16; Temp 98.2(TE); Pulse Ox 100% on R/A; Weight 68.04 kg bm7 (R); Height 5 ft. 1 in. (154.94 cm); 14:45 BP 111 / 6; Pulse 71; Resp 17 S; Pulse Ox 100% on R/A; jg9 15:15 BP 111 / 60; Pulse 71; Resp 17 S; Pulse Ox 100% on R/A; jg9 15:30 BP 111 / 70; Pulse 76; Resp 17 S; Pulse Ox 99% on R/A; jg9 19:45 BP 113 / 54; Pulse 77; Resp 16; Pulse Ox 98% on R/A; jb4 12:33 Body Mass Index 28.34 (68.04 kg, 154.94 cm) bm7 [place] Coma Score: 12:33 Eye Response: spontaneous(4). Verbal Response: confused(4). Motor Response: localizes bm7 pain(5). Total: 13. 12:44 Eye Response: spontaneous(4). Verbal Response: oriented(5). Motor Response: obeys snw commands(6). Total: 15. Trauma Score (Adult): 12:33 Eye Response: spontaneous(1); Verbal Response: confused(1); Motor Response: localizes bm7 pain(1); Systolic BP: > 89 mm Hg(4); Respiratory Rate: 10 to 29 per min(4); [place] Score: 13; Trauma Score: 11 12:44 Eye Response: spontaneous(1); Verbal Response: oriented(1); Motor Response: obeys snw commands(2); Systolic BP: > 89 mm Hg(4); Respiratory Rate: 10 to 29 per min(4); [place] Score: 15; Trauma Score: 12 MDM: 12:40 Patient medically screened. snw 14:03 Data reviewed: vital signs, nurses notes, radiologic studies. Response to treatment: snw the patient's symptoms have mildly improved after treatment. Special discussion: pt needs transfer for no specialty available. 14:30 Physician consultation: Dr Navarrete was called at 14:30, was contacted at 14:30, regarding snw regarding transfer, [facility] patient's condition, Dr. Richardson (Orthopedics) will see pt on arrival.. 07/02 14:03 Order name: SARS RAPID; Complete Time: 16:05 snw 07/02 14:03 Order name: CBC with Diff; Complete Time: 15:07 snw 07/02 12:40 Order name: CT Head C Spine; Complete Time: 13:41 snw 07/02 14:03 Order name: Chem 7; Complete Time: 15:26 snw 07/02 14:03 Order name: PT-INR; Complete Time: 15:15 snw 07/02 14:03 Order name: Ptt, Activated; Complete Time: 15:15 snw 07/02 12:40 Order name: Hip Right 2 View XRAY; Complete Time: 13:56 snw 07/02 12:40 Order name: CT Pelvis wo Cont; Complete Time: 13:41 snw 07/02 14:03 Order name: NPO; Complete Time: 14:38 snw 07/02 14:03 Order name: EKG; Complete Time: 14:03 snw 07/02 14:03 Order name: Chest Single View XRAY; Complete Time: 14:47 snw EC:50 Rate is 71 beats/min. Rhythm is regular. QRS [place] is Normal. PA interval is normal. QRS snw interval is normal. Clinical impression: NSR w/ Non-specific ST/T Changes. Administered Medications: 12:48 Drug: HYDROcodone-acetaminophen 5 mg-325 mg 1 tabs {Note: RASS-0.} Route: PO; jg9 13:30 Follow up: Response: No adverse reaction jg9 14:39 Drug: NS 0.9% 1000 ml Route: IV; Rate: 75 ml/hr; Site: left antecubital; jg9 20:08 Drug: morphine 2 mg Route: IVP; Infused Over: 4 mins; Site: right antecubital; jb4 20:08 Follow up: Response: Medication administered at discharge. jb4 Disposition Summary: 07/02/22 14:32 Transfer Ordered Transfer Location: Other Acute Care Facility snw Reason: Specialty snw Condition: Stable snw Problem: new snw Symptoms: are unchanged snw Accepting Physician: Dr. Navarrete (Dr. Richardson)(07/02/22 20:14) jb4 Diagnosis - Intertrochanteric fracture of femur snw Forms: - Medication Reconciliation Form snw - SBAR form snw Addendum: 07/06/2022 16:06 Co-signature as Attending Physician, Jacob ren Signatures: Dispatcher [employer] EDJacinta Flores, KILN BURNER-C KILN BURNER-Csnw Jacob Grove MD MD rn Bryson, James, RN RN jb4 Kathleen Hernandez, RN RN bm7 Anastacia Jensen RN RN jg9 Corrections: (The following items were deleted from the chart) 07/02 14:33 14:32 Dr. Navarrete (Dr. Richardson) [facility] sn 20:14 14:33 Dr. Navarrete (Dr. Richardson) [facility] jb4
--- NOTE | 2022-07-02 14:45 | RAD REPORT ---
EXAM DESCRIPTION: RAD - Chest Single View - 07/02/2022 2:37 pm CLINICAL HISTORY: preop Chest pain. COMPARISON: Chest Single View dated 05/11/2022; CHEST PA AND LAT 2 VIEW dated 01/25/2012 FINDINGS: Portable technique limits examination quality. The lungs are grossly clear. The heart is normal in size. No displaced fractures. IMPRESSION: No acute intrathoracic process suspected.
[2022-07-02 15:02] LABS: Absolute Lymphocytes (CBC) 0.8 K/uL (0.7-4.9); Hematocrit 45.2 % (36.0-45.0); Lymphocytes % 6.1 % (15.3-44.8); MCV 93.2 fL (80-100); MPV 8.5 fL (7.6-11.3); RBC Red Blood Cell Count 4.86 M/uL (3.86-4.86)
[2022-07-02 15:11] LABS: Protime INR 1.36
[2022-07-02 15:17] LABS: Potassium 3.8 mmol/L (3.5-5.1)
[2022-07-02 16:02] LABS: SARS-CoV-2 Antigen Rapid Res Negative (Negative)
[2022-07-02] MEDS ORDERED: MORPHINE 2 MG/ML SYR ONE ×2 (16:46→20:06)
[2022-07-02 21:13] VITALS: TEMP 98.2
[2022-07-02 21:43] VITALS: BP 113/54; O2SAT 98
--- NOTE | 2022-07-03 09:21 | EKG ---
Test Date: 2022-07-02 Test Time: 14:46:34 [employer] Operator: BLAS MEASUREMENT RESULTS: Intervals: Rate: 71 NV: 144 QRSD: 74 QT: 406 QTc: 441 [place]: P: 67 NV: 144 QRS: -4 T: 18 INTERPRETIVE STATEMENTS: Normal sinus rhythm Low voltage QRS Cannot rule out Anterior infarct, age undetermined Abnormal ECG Compared to ECG 05/11/2022 14:19:52 Low QRS voltage now present Myocardial infarct finding still present Electronically Signed On 07-03-22 09:18:47 CDT by Ryland Jimenez
== END 2022-07-02 20:14 ==
LOC: ER 11:57
DX: S72.141A Displaced intertrochanteric fracture of right femur, initial encounter for closed fracture (principal); G30.9 Alzheimer's disease, unspecified; F02.80 Dementia in other diseases classified elsewhere, unspecified severity, without behavioral disturbance, psychotic disturbance, mood disturbance, and anxiety; Z20.822 Contact with and (suspected) exposure to COVID-19
CPT/HCPCS: 93005; 85025; 80048; 36415; 85610; 85730; 70450; 72125; 72192; 71045; 73502; 96374; 99285; 87811; J2270 ×2; J7030